=== PATIENT | male | born 1990 | race Caucasian/White ===

== ENCOUNTER 2017-04-14 17:33 | Emergency (ER) | payer BC ==
[~2017-04-14] VITALS: Ht 182.9 cm; Wt 70.3 kg
--- NOTE | 2017-04-14 17:41 | NUR ---
PRESENTS SELF TO ED DT HEADACHE AND BLURRY VISSION X 3 DAYS. PATIENT IS AAO4. APPEARS IN NO APPARENT DISTRESS, RESPIRATION EVEN AND UNLABORED, SKIN IS WARM TO TOUCH AND NON DIAPHORETIC. PATIENT IS AFEBRILE. AMBULATORY WITH NO DIFFICULTY
[2017-04-14 18:50] VITALS: BP 144/91
--- NOTE | 2017-04-14 18:50 | NUR ---
Patient discharged to home in stable condition. Written and verbal after care instructions given. Patient verbalizes understanding of instruction.
== END 2017-04-14 18:51 | disposition home or self-care (01) ==
LOC: ER 17:35
DX: R51 Headache (principal); H53.8 Other visual disturbances
CPT/HCPCS: 70450; 99284; A4606; Z7610